=== PATIENT | female | born 1955 | race Caucasian/White ===

== ENCOUNTER 2020-09-25 11:01 | Outpatient (CLI) | payer BC, SELFPAY | END 2020-09-25 11:02 | disposition home or self-care (01) | LOC: ANHAUDIO 11:03 | PROVIDERS: PCP Internal Medicine; Visit Provider Internal Medicine | DX: H90.42 Sensorineural hearing loss, unilateral, left ear, with unrestricted hearing on the contralateral side (principal); H90.71 Mixed conductive and sensorineural hearing loss, unilateral, right ear, with unrestricted hearing on the contralateral side | CPT/HCPCS: 92557; 92567 ==

== ENCOUNTER → 2020-09-27 16:07 | Outpatient (CLI) | payer BC, MEDICARE, SELFPAY ==
--- NOTE | ~2020-09-27 | MM_ITS ---
EXAMINATION: MM screening annie BI w shadi HISTORY: Screening mammogram TECHNIQUE: Craniocaudal and mediolateral oblique 3-D tomosynthesis images were obtained and synthetic 2-D images were generated. Bilateral rotated lateral cc views. CAD analysis was submitted and interp reted. COMPARISON: 08/2016 diagnostic left digital mammogram and complete left breast ultrasound 07/26/2016, 07/21/2015, 07/15/2014 bilateral digital screening mammogram examinations BREAST PARENCHYMAL COMPOSITION: The breasts are heterogeneously dense, which may obscure small masses . FINDINGS: Again noted is postoperative change from right partial mastectomy for breast cancer. There is no evidence of suspicious mass, calcification, or interval architectural distortion to suggest mal ignancy in either breast. There has been no suspicious interval change. IMPRESSION: 1. Status post partial right mastectomy for breast cancer. No mammographic evidence of malignancy. 2. Recommend routine screening mammography in one year. BI-RADS Category 2: Benign finding(s). Reviewed, dictated and finalized at location A. IMPRESSION: 1. Status post partial right mastectomy for breast cancer. No mammographic evid ence of malignancy. 2. Recommend routine screening mammography in one year. BI-RADS Category 2: Benign finding(s).
== END ==
PROVIDERS: PCP Internal Medicine; Visit Provider Internal Medicine
DX: Z12.31 Encounter for screening mammogram for malignant neoplasm of breast (principal)
CPT/HCPCS: 77063; 77067

== ENCOUNTER → 2020-11-20 12:24 | Outpatient (CLI) | payer MEDICARE, SELFPAY ==
--- NOTE | ~2020-11-20 | DEXA_ITS ---
Bone Density Report Name: Lyudmila Lewis Age: 65 Sex: Female Ethnicity: White Date of : 1955 Indication: osteopenia; height loss; history of glucocorticoids; prior fracture; rheumatoid arthritis; postmenopausal Referring Provider: SHIRA, KIRA Kurtz Study: Bone densitometry was performed. Exam Date: November 20, 2020 Accession number: [id number] Bone Density: Region BMD T-score Z-score Classification AP Spine (L1, L2, L3) 0.818 -1.8 0.0 Osteopenia Femoral Neck (Left) 0.573 -2.5 -0.9 Osteoporosis Total Hip (Left) 0.769 -1.4 -0.1 Osteopenia Femoral Neck (Right) 0.575 -2.5 -0.9 Osteoporosis Total Hip (Right) 0.738 -1.7 -0.4 Osteopenia Total Hip Mean 0.754 -1.6 -0.3 Osteopenia World Health Organization criteria for BMD impression classify patients as: Normal (T-score at or above -1.0), Osteopenia (T-score between -1.0 and -2.5), or Osteoporosis (T-score at or below -2.5). 10-year Fracture Risk: FRAX not reported because: Some T-score for Spine Total or Hip Total or Femoral Neck at or below -2.5 Prior hip or vertebral fracture Previous Exams: Region Exam Age BMD T-score BMD Change BMD Change Date g/cm2 vs Baseline vs Previous AP Spine(L1, L2, L3) 11/20/2020 65 0.818 -1.8 -0.002 0.022 07/13/2018 63 0.796 -2.0 -0.024* -0.026* 11/28/2015 60 0.822 -1.8 0.002 -0.041* 09/20/2010 55 0.863 -1.4 0.043* 0.054* 10/27/2008 53 0.809 -1.9 -0.011 -0.020 05/05/2006 51 0.830 -1.7 0.010 0.010 10/29/2004 49 0.820 -1.8 Total Hip(Left) 11/20/2020 65 0.769 -1.4 -0.002 0.022 07/13/2018 63 0.747 -1.6 -0.024 0.002 11/28/2015 60 0.744 -1.6 -0.027 -0.029* 09/20/2010 55 0.773 -1.4 0.002 0.025 10/27/2008 53 0.748 -1.6 -0.023 0.023 05/05/2006 51 0.725 -1.8 -0.046* -0.046* 10/29/2004 49 0.771 -1.4 Total Hip(Right) 11/20/2020 65 0.738 -1.7 -0.015 -0.020 07/13/2018 63 0.758 -1.5 0.004 0.028* 11/28/2015 60 0.731 -1.7 -0.023 -0.054* 09/20/2010 55 0.785 -1.3 0.031* 0.046* 10/27/2008 53 0.739 -1.7 -0.015 -0.006 05/05/2006 51 0.745 -1.6 -0.009 -0.009 10/29/2004 49 0.754 -1.5 *Denotes significance at 95% confidence level, LSC for AP Spine = 0.022 g/cm2, LSC for Total Hip = 0.027 g/cm2
== END ==
PROVIDERS: PCP Internal Medicine; Visit Provider Internal Medicine
DX: M81.0 Age-related osteoporosis without current pathological fracture (principal); M85.88 Other specified disorders of bone density and structure, other site; M85.852 Other specified disorders of bone density and structure, left thigh; M85.851 Other specified disorders of bone density and structure, right thigh
CPT/HCPCS: 77080

== ENCOUNTER → 2021-11-12 13:11 | Outpatient (CLI) | payer MEDICARE, SELFPAY ==
--- NOTE | ~2021-11-12 | MM_ITS ---
EXAMINATION: MM screening annie BI w shadi HISTORY: Screening mammogram, history of right breast cancer TECHNIQUE: Craniocaudal and mediolateral oblique 3-D tomosynthesis images were obtained and synthetic 2-D images were generated. CAD analysis was submitted and interpreted. COMPARISON: 09/27/2020, 08/05/2016, 07/26/2016, 11/28/2015 BREAST PARENCHYMAL COMPOSITION: The breasts are heterogeneously dense, which may obscure small masses . FINDINGS: Stable lumpectomy changes are noted in the right breast. There is no suspicious mass, calci fication, or architectural distortion to suggest malignancy in either breast. There has been no suspi cious interval change. IMPRESSION: 1. No mammographic evidence of malignancy. 2. Recommend routine screening mammography in one year. BI-RADS Category 2: Benign finding(s). Reviewed, dictated and finalized at location A.
== END ==
PROVIDERS: PCP Internal Medicine; Visit Provider Internal Medicine
DX: Z12.31 Encounter for screening mammogram for malignant neoplasm of breast (principal)
CPT/HCPCS: 77063; 77067

== ENCOUNTER 2022-02-10 09:46 | Emergency (ER) | payer MEDICARE, SELFPAY ==
--- NOTE | ~2022-02-10 | XR_ITS ---
EXAMINATION: XR ankle RT min 3V, XR foot RT min 3V DATE: 02/10/2022 10:28 INDICATION: Lateral right ankle and dorsal right foot pain TECHNIQUE: 1. Anteroposterior, mortise, additional oblique and lateral view of the right ankle were obtained. 2. Dorsoplantar, two oblique and lateral views of the right foot were obtained. COMPARISON: 02/15/2019 FINDINGS: Diffuse osteopenia. Internally fixed arthrodesis at the right first metatarsophalangeal joint. Additi onal arthrodesis without internal fixation at the second proximal interphalangeal joint. There is als o been resection of the heads of the second-fifth metatarsals. No fracture. Polyarticular osteoarthri tis, moderate at the interphalangeal joints, naviculocuneiform and second and third tarsal metatarsal joints and mild at the right ankle and several of the remaining joints in the right foot. Small plan tar calcaneal spur. Stable appearance of a small region with irregular trabecular pattern at the late ral aspect of the metadiaphyseal region of the distal right tibia which given the interval stability is likely benign. Small heterotopic ossicle along the dorsal capsule of the talonavicular joint. No a nkle joint effusion. The soft tissues are unremarkable. IMPRESSION: 1. Diffuse osteopenia with mild to moderate polyarticular osteoarthritis in the right foot and postop erative changes in the right forefoot as detailed above. No acute osseous abnormality. Reviewed, dictated and finalized at location B. IMPRESSION: 1. Diffuse osteopenia with mild to moderate polyarticular osteoarthritis in the right foot and postoperative changes in the right forefoot as detailed above. No acute osseous abnormality.
--- NOTE | 2022-02-10 09:49 | ED.LOWEXIN ---
HPI - Extremity Injury (Lower) General Chief Complaint: Extremity Injury, Lower Stated Complaint: Right Ankle Pain Time Seen by Provider: 02/10/22 09:49 Source: patient Mode of arrival: ambulatory Limitations: no limitations History of Present Illness HPI Narrative: Ms. Lewis is a 66-year-old female patient presenting to the clinic today with complaints of right ankle and foot pain this morning. She reports her dog ran into her leg causing her foot/ankle to invert. Has pain to the top of her foot. Pain with ROM of ankle/foot Related Data Home Medications Medication Instructions Recorded Confirmed hydrochlorothiazide 25 mg tablet 25 mg PO DAILY 03/15/19 02/10/22 metoprolol tartrate 25 mg tablet 25 mg PO BID 03/15/19 02/10/22 venlafaxine 75 mg tablet 75 mg PO DAILY 03/15/19 02/10/22 Allergies Allergy/AdvReac Type Severity Reaction Status Date / Time No Known Allergies Allergy Verified 02/10/22 09:58 Review of Systems Review of Systems: Pertinent positives per HPI. Patient denies any fever, chills, rash, headache, visual changes, dizziness, cough, runny nose, sore throat, shortness of breath, chest pain, palpitations, nausea, vomiting, diarrhea, constipation, abdominal pain, or any urinary issues. [facility] Past Medical History Medical History Anxiety Closed left arm fracture Depression Generalized osteoarthritis of multiple sites Hypertension Rheumatoid arthritis Vitamin D deficiency Surgical History Surgical History H/O foot surgery H/O partial mastectomy Family History Family History Mother Cerebrovascular accident Father Family history of malignant neoplasm of bone Social History Social History Smoking status: Never smoker Alcohol intake: current Comments At the time of my signature, I reviewed and agree with the nursing past medical, surgical, social, and family history. There is no relevant family history pertinent to the patient complaint. Exam Narrative: General: Well-developed, well nourished, in no apparent distress Head: Normocephalic, atraumatic. Cardio: Regular rate and rhythm, s1 and s2 normal, no murmur appreciated. Resp: Clear to auscultation bilaterally, no rhonchi, rales, wheezing or rubs. Musculoskeletal: No deformity, mild bruising and swelling noted to the dorsal right foot,tender to palpation over the dorsal foot and the lateral lower ankle, pain with plantar and dorsiflexion of the right foot, muscle strength strong and equal, peripheral pulse strong, no cyanosis, sitting in a wheelchair Course Course Emergency Course: Portions of this record may have been created with voice recognition software. Level of Care: Express Care Visit Vital Signs Vital signs: Vital Signs Temperature 35.9 C L 02/10/22 10:00 Pulse Rate 85 02/10/22 10:00 Respiratory Rate 12 02/10/22 10:00 Blood Pressure 142/58 H 02/10/22 10:00 Pulse Oximetry 99 02/10/22 10:00 Temperature 35.9 C L 02/10/22 10:00 Pulse Rate 85 02/10/22 10:00 Respiratory Rate 12 02/10/22 10:00 Blood Pressure 142/58 H 02/10/22 10:00 Pulse Oximetry 99 02/10/22 10:00 Vital signs reviewed MDM - Extremity Injury (Lower) MDM Narrative Medical decision making narrative: At the time of visit patient is resting comfortably on the exam table. X-ray completed of the right ankle and foot and were negative for any sign of fracture or malalignment however she does have osteoarthritis and osteopenia. I suspect the patient has a foot contusion/sprain of the foot and ankle. Supportive measures were discussed with the patient and I will place a Kenn wrap on her and give her a postop shoe for comfort. She voiced understanding of discharge instructions and agre
[2022-02-10 10:00] VITALS: BP 142/58; PULSE 85; RESP 12; TEMP 35.9; O2SAT 99
== END 2022-02-10 11:08 | disposition home or self-care (01) ==
LOC: EXPCOLL 09:52
PROVIDERS: Emergency Provider Nurse Practitioner Family; PCP Internal Medicine
DX: S93.601A Unspecified sprain of right foot, initial encounter (principal); W54.1XXA Struck by dog, initial encounter; S93.411A Sprain of calcaneofibular ligament of right ankle, initial encounter; S90.31XA Contusion of right foot, initial encounter; M19.071 Primary osteoarthritis, right ankle and foot; I10 Essential (primary) hypertension; M06.9 Rheumatoid arthritis, unspecified; E55.9 Vitamin D deficiency, unspecified; F41.9 Anxiety disorder, unspecified; F32.A Depression, unspecified; Z85.3 Personal history of malignant neoplasm of breast; Z90.11 Acquired absence of right breast and nipple
CPT/HCPCS: 73610; 73630; 99213; G0463

== ENCOUNTER 2022-11-27 14:22 | Outpatient (CLI) | payer MEDICARE, SELFPAY ==
[2022-11-27 14:53] LABS: Hematocrit 39.7 % (37.0-47.0); Hemoglobin 13.9 g/dL (12.0-15.0); Mean Corpuscular Hemoglobin 33.6 pg (26-34); Mean Corpuscular Volume 95.9 fl (80-100); Mean Platelet Volume 9.6 fl (7.4-10.4); Platelet Count Result 144 k/mm3 (150-375); Red Blood Count 4.14 M/mm3 (4.2-5.4); Red Cell Distribution Width 12.4 % (11.5-14.5); White Blood Count 3.7 K/mm3 (4.5-10.0)
[2022-11-27 15:05] LABS: Alanine Aminotransferase 31 U/L (6-35); Albumin Level 4.4 g/dL (3.5-5.1); Alkaline Phosphatase 56 U/L (38-126); Anion Gap 6 mmol/L (8-16); Aspartate Amino Transferase 44 U/L (14-36); Bilirubin,Total 0.8 mg/dL (0.2-1.3); Blood Urea Nitrogen 17 mg/dL (7-17); CRP < 0.5 mg/dL (<1.0); Calcium 9.1 mg/dL (8.4-10.2); Carbon Dioxide 29 mmol/L (22-30); Chloride 102 mmol/L (98-107); Estimated Glomerular Filt Rate > 60; Glucose 75 mg/dL (65-110); Sodium 137 mmol/L (137-145)
[2022-11-27 15:16] LABS: Erythrocyte Sedimentation Rate 10 mm/hr (0-20)
[2022-12-03 20:38] LABS: Immunoglobulin A 146 mg/dL (70-320); TTG IGA AB <1.0 U/mL (<15.0)
== END 2022-11-27 14:23 | disposition home or self-care (01) ==
LOC: ANHLAB 14:23
PROVIDERS: PCP Internal Medicine; Visit Provider Nurse Practitioner
DX: K58.0 Irritable bowel syndrome with diarrhea (principal)
CPT/HCPCS: 36415; 80053; 82784; 85027; 85652; 86140; 86364

== ENCOUNTER → 2023-01-07 13:58 | Outpatient (CLI) | payer MEDICARE, SELFPAY ==
--- NOTE | ~2023-01-07 | MM_ITS ---
EXAMINATION: MM screening annie BI w shadi HISTORY: Screening mammogram TECHNIQUE: Craniocaudal and mediolateral oblique 3-D tomosynthesis images were obtained and synthetic 2-D images were generated. CAD analysis was submitted and interpreted. COMPARISON: No prior mammogram is available for comparison at this institution. BREAST PARENCHYMAL COMPOSITION: The breasts are heterogeneously dense, which may obscure small masses . FINDINGS: Status post right partial mastectomy for breast cancer, stable. There is no evidence of sunitha picious mass, calcification, or architectural distortion to suggest malignancy in either breast. Ther e has been no suspicious interval change. IMPRESSION: 1. Status post right partial mastectomy. No mammographic evidence of malignancy. 2. Recommend routine screening mammography in one year. BI-RADS Category 2: Benign finding(s). Reviewed, dictated and finalized at location A. IMPRESSION: 1. Status post right partial mastectomy. No mammographic evidence of malignancy . 2. Recommend routine screening mammography in one year. BI-RADS Category 2: Benign finding(s).
== END ==
PROVIDERS: PCP Internal Medicine; Visit Provider Nurse Practitioner Obstetrics & Gynecology
DX: Z12.31 Encounter for screening mammogram for malignant neoplasm of breast (principal)
CPT/HCPCS: 77063; 77067

== ENCOUNTER 2024-03-17 14:54 | Outpatient (CLI) | payer MEDICARE, SELFPAY ==
--- NOTE | ~2024-03-17 | MM_ITS ---
EXAMINATION: MM screening [facility] BI w shadi HISTORY: Screening mammogram TECHNIQUE: Craniocaudal and mediolateral oblique 3-D tomosynthesis images were obtained and synthetic 2-D images were generated. CAD analysis was submitted and interpreted. COMPARISON: 01/07/2023, 11/12/2021, 09/27/2020 BREAST PARENCHYMAL COMPOSITION:Dense: The breasts are heterogeneously dense, which may obscure small masses. FINDINGS: No suspicious mass, calcification, or architectural distortion are identified in either michael ast to suggest malignancy. There has been no suspicious interval change. IMPRESSION: No mammographic evidence of malignancy. Recommend routine screening mammography in one year. BI-RADS Category 1: Negative Reviewed, dictated and finalized at location . [employer]
== END 2024-03-17 14:55 | disposition home or self-care (01) ==
LOC: MICIMG 14:55
PROVIDERS: PCP Advanced Practice Midwife; Visit Provider Internal Medicine
DX: Z12.31 Encounter for screening mammogram for malignant neoplasm of breast (principal)
CPT/HCPCS: 77063; 77067

== ENCOUNTER 2025-03-20 14:45 | Outpatient (CLI) | payer MEDICARE, SELFPAY ==
--- NOTE | ~2025-03-20 | MM_ITS ---
EXAMINATION: MM screening [facility] BI w shadi INDICATION: Asymptomatic, referred for screening mammogram. History of Right partial mastectomy 2010. COMPARISON: 03/17/2024 through 07/26/2016 TECHNIQUE: Digital Breast Tomosynthesis CC, MLO views were obtained of Both breasts with computer-aided detection to assist in interpretation of the study. FINDINGS: The breasts are heterogeneously dense, which may obscure small masses. Posttreatment changes in Right breast are stable. No new focal dominant mass, architectural distortion, or suspicious microcalcifications are identified. There are no features to suggest malignancy. IMPRESSION: Stable benign mammogram. No evidence of malignancy in the breast. Recommend annual screening mammography in 12 months. BI-RADS 2, BENIGN Reviewed, dictated and finalized at location B. [employer]
== END 2025-03-20 14:46 | disposition home or self-care (01) ==
LOC: MICIMG 14:45
PROVIDERS: PCP Advanced Practice Midwife; Visit Provider Advanced Practice Midwife
DX: Z12.31 Encounter for screening mammogram for malignant neoplasm of breast (principal)
CPT/HCPCS: 77063; 77067